=== PATIENT | male | born 1965 | race African-American/Black ===

== ENCOUNTER 2018-11-24 21:59 | Emergency (ER) | payer SELFPAY ==
[2018-11-24] MEDS ORDERED: Ketorolac Tromethamine 30 MG/ML VIAL ONE (22:20)
[2018-11-24] MEDS ORDERED: Ondansetron PF 4 MG/2 ML Vial ONE (22:20)
--- NOTE | 2018-11-24 22:35 | RAD ---
Exam: Chest one view HISTORY:01/15/2011 Comparison: None FINDINGS: Lungs: No masses or consolidation. Cardiac silhouette: Normal size Pulmonary vessels: Normal Pleural Spaces: Clear Pneumothorax: None Osseous abnormalities: None of acuity. IMPRESSION: No focal consolidation.
[2018-11-24 22:36] LABS: #Basophils 0.2 thou/uL (0.0-0.2); #Eosinphils 0.1 thou/uL (0.0-0.7); #Lymphocytes 3.8 thou/uL (1.20-3.40); #Monocytes 0.8 thou/uL (0.11-0.59); #Neutrophils 5.4 thou/uL (1.40-6.50); %Basophils 1.8 % (0.0-1.0); %Eosinophils 0.8 % (0.0-10.0); %Lymphocytes 36.8 % (21.0-51.0); %Monocytes 7.8 % (0.0-10.0); %Neutrophils 52.8 % (42.0-75.0); Hemoglobin 16.6 g/dL (14.0-18.0); Mean Corpuscular Hemoglobin 33.9 pg (27.0-31.0); Mean Corpuscular Volume 99.7 fL (78.0-98.0); Mean Platelet Volume 8.3 fL (7.4-10.4); Platelet Count 215 thou/uL (130-400); RBC Distribution Width 11.7 % (11.5-14.5); Red Blood Cell (RBC) Count 4.91 mill/uL (4.70-6.10); White Blood Cell (WBC) Count 10.2 thou/uL (4.8-10.8)
[2018-11-24 22:54] LABS: ALT (SGPT) 44 U/L (8-55); AST (SGOT) 33 U/L (5-34); Albumin 4.7 g/dL (3.5-5.0); Alkaline Phosphatase 58 U/L (40-110); Anion Gap 13 mmol/L (10-20); BUN (Urea Nitrogen) 10 mg/dL (8.4-25.7); Bilirubin, Total 0.3 mg/dL (0.2-1.2); Calc. Creatinine Clearance 0 mL/min (70-130); Calcium 9.8 mg/dL (7.8-10.44); Carbon Dioxide 29 mmol/L (22-29); Chloride 103 mmol/L (98-107); Estimated GFR-MDRD 78; Globulin 3.6 g/dL (2.4-3.5); Glucose 88 mg/dL (70-105); Lipase 48 U/L (8-78); Protein, Total 8.3 g/dL (6.0-8.3); Sodium 141 mmol/L (136-145)
--- NOTE | 2018-11-24 23:41 | ULT ---
GALLBLADDER ULTRASOUND: 11/24/18 INDICATION: Pain. FINDINGS: There is increased echogenicity of the hepatic parenchyma. No evidence of shadowing cholelithiasis a lthough there is limited assessment of the gallbladder by the contracted state which also produces wa ll prominence. Leggett's sign is reported as negative by the [employer]. No ascites. Common duct is normal. IMPRESSION: 1. Contracted gallbladder. 2. Hepatic steatosis. POS: [facility]
--- NOTE | 2018-11-27 14:43 | EKG ---
Test Reason : Blood Pressure : / mmHG Vent. Rate : 082 BPM Atrial Rate : 082 BPM P-R Int : 132 ms QRS Dur : 066 ms QT Int : 356 ms P-R-T Axes : 041 057 028 degrees QTc Int : 415 ms Normal sinus rhythm Normal ECG Confirmed by SANTIAGO HAWKINS DO ([id number]), photograph editor CLARENCE TAPIA ([id number]) on 11/27/2018 2:42:28 PM Referred By: Confirmed By:SANTIAGO HAWKINS DO
== END 2018-11-24 23:52 | disposition home or self-care (01) ==
LOC: ERS 21:59
DX: M94.0 Chondrocostal junction syndrome [Tietze] (principal); I10 Essential (primary) hypertension; E78.5 Hyperlipidemia, unspecified; E78.00 Pure hypercholesterolemia, unspecified; F17.210 Nicotine dependence, cigarettes, uncomplicated
CPT/HCPCS: 36415; 71045; 76705; 80053; 83690; 84484; 85025; 93005; 96361; 96374; 96375; J1885; J2405